=== PATIENT | male | born 1970 | race American Indian/Alaskan Native ===

== ENCOUNTER 2016-11-03 19:35 | Emergency (ER) | payer MEDICAID ==
[2016-11-03] MEDS ORDERED: XYLOCAINE CARDIAC IV ONE (19:45)
[2016-11-03] MEDS ORDERED: QUELICIN ONE (19:45)
[2016-11-03] MEDS ORDERED: AMIDATE IV ONE (19:45)
[2016-11-03] MEDS ORDERED: INTROPIN DRIP 800 MG/D5W 250 ML IV ONE (19:55)
[2016-11-03] MEDS ORDERED: ADRENALIN ONE (19:55)
[2016-11-03] MEDS ORDERED: ATROPINE 0.1% (CARDIAC) ONE (19:55)
[2016-11-03] MEDS ORDERED: SODIUM BICARBONATE IV ONE (19:55)
--- NOTE | 2016-11-03 20:21 | Emergency Department Report ---
HPI - General Time Seen by Provider: 11/03/16 20:13 - HPI HPI: Room 1 The patient is a 46-year-old male presenting with chief of hypoxia. Per EMS the patient is a resident at [facility] reportedly found unresponsive. Per EMS the patient was hypoxic upon their [facility] to the [facility]. A nasal trumpet was placed the patient was being bagged. Upon arrival to the ED the patient was found to have aspirated and immediately required RSI. Prior to intubation the patient went asystolic and CPR was initiated. ACLS protocols were continued without return of spontaneous circulation Location: The cardiovascular system Duration: [see above] Quality: [see above] Severity: Severe Modifying factors: [see above] Context: [see above] Mode of transportation: [not driving] ED Past Medical Hx - Past Medical History Hx Pulmonary Embolism: Yes (Bipolar) Hx GERD: Yes Hx Seizures: Yes Additional medical history: multiple sclerosis, Traumatic Brain Injury, Dysphasia, Anemia - Surgical History Additional Surgical History: previous peg tube, previous trach - Family History Family history: no significant - Social History Smoking Status: Former Smoker Substance Use Type: None ED Review of Systems ROS: Stated complaint: KALI Other details as noted in HPI Comment: Unobtainable due to pts medical conditions Physical Exam - Physical Exam Physical Exam: GENERAL: The patient is well-developed well-nourished male lying on stretcher unresponsive. [] HEENT: Normocephalic. Oropharynx filled with brown serous fluid. Nasal trumpet in place NECK: Supple. Trachea midline CHEST/LUNGS: No spontaneous respirations HEART/CARDIOVASCULAR: Regular. There is no tachycardia. There is no gallop rub or murmur. ABDOMEN: Abdomen is soft SKIN: There is no diaphoresis. NEURO: GCS 3 MUSCULOSKELETAL: There is no evidence of acute injury. ED Medical Decision Making - Differential Diagnosis aspiration, cardiac arrest Critical care attestation.: If time is entered above; I have spent that time in minutes in the direct care of this critically ill patient, excluding procedure time. ED Disposition Clinical Impression: Cardiac arrest Disposition: MEDICAL FACILITY Is pt being admited?: No Does the pt Need Aspirin: No Condition: Poor Referrals: PRIMARY CARE, [Primary Care Provider] - 3-5 Days Time of Disposition: 20:14 (patient ) Blank Doc - Documentation Documentation: The patient was intubated via orotracheal route using a 7.5 mm endotracheal tube. Rapid sequence induction was used lysing lidocaine 100 mg IV, succinylcholine 100 mg IV, etomidate 20 mg IV. Positioning was confirmed using auscultation and CO2 detector. Post intubation chest xray was ordered verbally obtained secondary to cardiac arrest.
== END 2016-11-03 23:02 ==
LOC: ED 19:35
DX: I46.9 Cardiac arrest, cause unspecified (principal); Z87.891 Personal history of nicotine dependence; F31.9 Bipolar disorder, unspecified; K21.9 Gastro-esophageal reflux disease without esophagitis; R56.9 Unspecified convulsions
CPT/HCPCS: 31500; 99285; J0171; J0330; J0461; J1265; J2001